=== PATIENT | male | born 1945 | race Caucasian/White ===

== ENCOUNTER 2021-03-06 22:16 | Observation (INO) ==
[2021-03-06] MEDS ORDERED: ACETAMINOPHEN 500 MG TABLET ONE (23:01)
[2021-03-06] MEDS ORDERED: VANCOMYCIN INJ 1,500 MG in SODIUM CHLORIDE 0.9% 250 ML IV STA (23:26)
[2021-03-06] MEDS ORDERED: PIPERACILLIN/TAZOBACTAM 3,375 MG in SODIUM CHLORIDE 0.9% 100 ML IV STA (23:26)
[2021-03-06] MEDS ORDERED: SODIUM CHLORIDE 0.9% 1,000 ML IV STA (23:26)
[2021-03-06] MEDS ORDERED: ACETAMINOPHEN 500 MG TABLET PO STA (23:26)
[2021-03-06] MEDS ORDERED: VANCOMYCIN INJ 1,500 MG in SODIUM CHLORIDE 0.9% 500 ML IV STA (23:30)
[2021-03-06 23:40] LABS: Basophils % 0.7 % (0.0-0.8); Eosinophils # 0.3 10*3/uL (0.0-0.87); Eosinophils % 4.5 % (0.00-10.9); Hematocrit 37.9 VOL% (42.0-52.0); Hemoglobin 13.1 GM/DL (14.0-18.0); Immature Granulocytes % 0.5 %; Immature Granulocytes Absolute 0.03 #; Lymphocytes # 0.3 10*3/uL (1.4-4.0); Lymphocytes % 5.5 % (21.2-54.2); Mean Corpuscular HGB Conc 34.6 GM/DL (32-36); Mean Corpuscular Volume 87.7 FL (87-102); Mean Platelet Volume 10.4 FL (9.6-12.0); Monocytes % 9.7 % (1.7-12.7); Neutrophils % 79.1 % (38.7-73.9); Platelet Count 132 T/CUMM (130-400); Red Blood Count 4.32 MC/CUMM (3.8-5.5); Red Cell Distribution Width 11.4 % (9.3-17.3)
[2021-03-06 23:53] LABS: Albumin 3.9 G/DL (3.4-5.0); Bilirubin,Total 0.4 MG/DL (0.20-1.00); Calcium 8.2 MG/DL (8.5-10.1); Osmolality,Calculated 274.8 MOS/KG (273-304); Potassium 4.2 MMOL/L (3.5-5.1); Total Protein 6.9 G/DL (6.4-8.2)
[2021-03-07 00:44] LABS: Bilirubin,Urine Negative (Negative); Blood, Urine Small mg/dL (Negative); Glucose,Urine (UA) Negative (Negative); Ketones,Urine Negative (Negative); Mucus,Urine Occasional /LPF (Occasional); Nitrite,Urine Negative (Negative); Protein,Urine Negative; RBC,Urine 1 /HPF (0-4); Squamous Epithelial Cell,Urine Occasional /HPF (0-10); Urine Appearance CLEAR (Clear); Urine Color Yellow (Yellow); Urine Specific Gravity 1.012 (1.001-1.035); Urine Urobilinogen < 2.0 EU/DL (0.2-1.0)
[2021-03-07] MEDS ORDERED: ONDANSETRON 4 MG/2 ML VIAL ONE (00:54)
[2021-03-07] MEDS ORDERED: DEXTROSE 50% 25 GM/50 ML VIAL IV PRN (02:49)
[2021-03-07] MEDS ORDERED: GLUCAGON 1 MG VIAL IM PRN (02:49)
[2021-03-07] MEDS ORDERED: ACETAMINOPHEN 325 MG TABLET PO PRN (02:49)
[2021-03-07] MEDS ORDERED: ONDANSETRON 4 MG/2 ML VIAL IV PRN (02:49)
[2021-03-07] MEDS ORDERED: diphenhydrAMINE CAP 25 MG CAPSULE PO PRN (02:49)
[2021-03-07] MEDS ORDERED: NICOTINE 21 MG/24 HR PATCH TRANSDERM PRN (02:49)
[2021-03-07] MEDS ORDERED: SODIUM CHLORIDE 0.9% 1,000 ML IV SCH (03:00)
[2021-03-07 03:10] LABS: Ferritin 322.1 ng/ml (26-388)
[2021-03-07 04:14] LABS: Basophils % 0.7 % (0.0-0.8); Eosinophils # 0.2 10*3/uL (0.0-0.87); Eosinophils % 2.5 % (0.00-10.9); Hematocrit 34.3 VOL% (42.0-52.0); Hemoglobin 11.7 GM/DL (14.0-18.0); Immature Granulocytes % 0.8 %; Immature Granulocytes Absolute 0.05 #; Lymphocytes # 0.4 10*3/uL (1.4-4.0); Lymphocytes % 7.4 % (21.2-54.2); Mean Corpuscular HGB Conc 34.1 GM/DL (32-36); Mean Corpuscular Volume 89.1 FL (87-102); Mean Platelet Volume 10.2 FL (9.6-12.0); Monocytes % 11.7 % (1.7-12.7); Neutrophils % 76.9 % (38.7-73.9); Platelet Count 126 T/CUMM (130-400); Red Blood Count 3.85 MC/CUMM (3.8-5.5); Red Cell Distribution Width 11.5 % (9.3-17.3)
[2021-03-07] MEDS ORDERED: PIPERACILLIN/TAZOBACTAM 3,375 MG in SODIUM CHLORIDE 0.9% 100 ML IV SCH (08:00)
[2021-03-07 11:50] VITALS: BP 117/53
[2021-03-07] MEDS ORDERED: cephALEXin 500 MG CAPSULE PO SCH (21:00)
== END 2021-03-07 14:34 | disposition home or self-care (01) ==
LOC: EDBD → EDUNIT# → N.ED 22:16 → N.EDINP 22:16 → N.5E 03-07 05:39
PROVIDERS: ADMIT Hospitalist; ATTEND Hospitalist